=== PATIENT | male | born 1990 | race Caucasian/White ===

== ENCOUNTER 2017-03-25 13:05 | Emergency (ER) | payer SELFPAY ==
--- NOTE | ~2017-03-25 | ER ---
PATIENT'S NAME: SUZIE HART [facility] AGE: 26 Y [address] ROOM: [place] [address] LOCATION: [facility] ADMIT DATE: 03/25/2017 ER/Outpatient Report DISCHARGE DATE: 03/25/2017 FAMILY PHYSICIAN: PHYSICIAN, NO ATTENDING PHYSICIAN: Jeff Blackman CHIEF COMPLAINT: Need medically cleared in order to donate plasma. HISTORY OF PRESENT ILLNESS: This patient is currently unemployed and seeking work. In the interim, he would like to donate plasma for the money, that is paid. He went to do this and was told he needed to be medically cleared first. He presented to the [facility] as well as [facility]. The [facility] told him he needed to come to the emergency room. [facility] also told him he needed to come to the Emergency Room. [facility], he found it to be closed. The patient denies any health problems other than ADHD, but he has not been medicated for 10 or more years. PAST MEDICAL HISTORY: ADHD, low back pain. HOME MEDICATIONS: None. ALLERGIES: NONE.. SOCIAL HISTORY: The patient quit smoking 2 years ago. He smoked marijuana in high school. He has had no illicit drugs since. He very rarely drinks alcohol. REVIEW OF SYSTEMS: CONSTITUTIONAL: The patient denies any fevers, chills, or sweats. He denies any recent weight loss. HEENT: No complaints of headache, vision changes, or upper respiratory congestion. CARDIOVASCULAR: No palpitations or chest pain. RESPIRATORY: No shortness of breath or cough. GI: No nausea, vomiting, diarrhea, or constipation. : No urinary frequency, urgency, or dysuria. NEURO: He denies any confusion or weakness. MUSCULOSKELETAL: No myalgias. HEMATOLOGY: No history of bleeding disorder. SKIN: No new rashes or lesions. PATIENT'S NAME: SUZIE HART [facility] AGE: 26 Y [address] ROOM: [place] [address] LOCATION: [facility] ADMIT DATE: 03/25/2017 ER/Outpatient Report DISCHARGE DATE: 03/25/2017 FAMILY PHYSICIAN: PHYSICIAN, NO ATTENDING PHYSICIAN: Jeff Blackman PHYSICAL EXAMINATION: VITAL SIGNS: Blood pressure is 118/68, pulse of 85, respiratory rate of 20, temperature is 97 tympanically, room air oxygen saturation is 97%. GENERAL: He is alert and oriented. [place] [place], warm, and dry. No acute distress. HEENT: Head is normocephalic. Eyes: PERRL. EOMs are intact. Ears: The TMs are pearly ha with light reflex and landmarks easily visible. Nose is without rhinorrhea. Pharynx is without edema, erythema, or exudate. Mucous membranes are moist. NECK: Supple. No lymphadenopathy. LUNGS: Clear to anterior-posterior auscultation. Respiratory rate is normal. No adventitious lung sounds. HEART: Rate is regular. Normal S1, S2. No murmurs. ABDOMEN: Soft, nondistended. Bowel sounds are present in all 4 quadrants. EXTREMITIES: Without edema. Cap refill is less than 3 seconds. No peripheral edema. Peripheral pulses are 2+. NEUROLOGIC: Cranial nerves 2 through 12 are intact. Motor strength is 5/5 in the upper and lower extremities. His gait is steady. There is no nuchal rigidity. IMPRESSION/ASSESSMENT: No health concerns identified. EMERGENCY DEPARTMENT COURSE: No further studies were done. DISPOSITION/PLAN: The patient was given a note stating that he had been evaluated, and there were no current health concerns, and his history and physical are negative. AKANKSHA LAUREN APRN FOR JEFF BLACKMAN DO DP/anuragl /[id number] d: 03/25/17 2340 t: 04/04/17 1409, OUTPATIENT REPORT
== END 2017-03-25 14:06 | disposition disaster alternative care site (69) ==
LOC: GMED 13:05
DX: Z00.00 Encounter for general adult medical examination without abnormal findings (principal); F90.9 Attention-deficit hyperactivity disorder, unspecified type; Z87.891 Personal history of nicotine dependence